=== PATIENT | male | born 1960 | race Caucasian/White ===

== ENCOUNTER 2021-01-25 08:46 | Observation (INO) ==
[2021-01-25] MEDS ORDERED: ceFAZolin 2 GM PREMIX 2 GM/50 ML BAG IVPB ONE (08:59)
[2021-01-25 09:38] LABS: ABS Eosinophils 0.2 10^3/ul (0-0.6); ABS Monocytes 0.7 10^3/ul (0-0.8); ABS Neutrophils 3.9 10^3/ul (1.5-7.7); Eosinophil % 2.4 %; Hematocrit 49 % (42-52); Hemoglobin 16.7 g/dL (14.0-18.0); Lymphocyte % 29.2 %; Mean Corpuscular HGB Conc 34 g/dL (31-36); Mean Corpuscular Hemoglobin 31 pg (27-31); Mean Corpuscular Volume 92 fL (80-94); Mean Platelet Volume 7.8 fL (7.4-10.4); Platelet Count 320 10^3/uL (150-450); Red Blood Count 5.31 10^6 /uL (4.18-5.48); Red Cell Distribution Width 14 % (10-15); White Blood Count 6.8 10^3/uL (3.5-10.8)
[2021-01-25 09:56] LABS: Calcium 9.6 mg/dL (8.6-10.3); EGFR African American 87.2 (>60); Potassium 4.4 mmol/L (3.5-5.0)
[2021-01-25] MEDS ORDERED: Lidocaine 1% VIAL 10 MG/ML VIAL ONE (10:27)
[2021-01-25] MEDS ORDERED: Midazolam 5 mg/5 ml VIAL 1 mg/ml 5 ml VIAL (5 mg) ONE (10:28)
[2021-01-25] MEDS ORDERED: fentaNYL 100 mcg/2 ml 50 MCG/ML VIAL ONE (10:28)
[2021-01-25] MEDS ORDERED: Iohexol 300 (CONTRAST) 10 ML SDV ONE ×2 (10:29→11:15)
[2021-01-25] MEDS: NS 0.9% 1000 ml BAG 1,000 ML IV SCH (14:26)
[2021-01-25] MEDS: ceFAZolin VIAL 1 GM in NS 0.9% 50 ML 50 ML IVPB SCH (16:58)
[2021-01-26] MEDS: ceFAZolin VIAL 1 GM in NS 0.9% 50 ML 50 ML IVPB SCH ×2 (00:48→09:13)
[2021-01-26] MEDS: NS 0.9% 1000 ml BAG 1,000 ML IV SCH (00:48)
[2021-01-26 07:54] VITALS: BP 112/72
[2021-01-26] MEDS ORDERED: Aspirin EC 81 mg TAB.EC (enteric coated) PO SCH (09:00)
== END 2021-01-26 12:04 | disposition home or self-care (01) ==
LOC: MEDTELE 08:46 → CHICATH 08:46
PROVIDERS: ADMIT Specialist; ATTEND Specialist